=== PATIENT | female | born 1995 | race American Indian/Alaskan Native ===

== ENCOUNTER 2017-06-10 09:33 | Inpatient (IN) | payer MEDICAID ==
[2017-06-10] MEDS ORDERED: ePHEDrine SULFATE IV PRN ×2 (10:26→13:59)
[2017-06-10] MEDS ORDERED: XYLOCAINE 2% INFILTRATI ONE (10:26)
[2017-06-10] MEDS ORDERED: ZOFRAN IV PRN (10:26)
[2017-06-10] MEDS ORDERED: BRETHINE SUB-Q PRN (10:26)
[2017-06-10] MEDS ORDERED: SUBLIMAZE IV PRN (10:26)
[2017-06-10] MEDS ORDERED: MINERAL OIL PO PRN (10:26)
[2017-06-10] MEDS ORDERED: LACTATED RINGERS 1,000 ML IV SCH (11:00)
[2017-06-10] MEDS ORDERED: PITOCin/NS 20 UNIT/1000ML DRIP 20 UNITS/1,000 ML BAG IV SCH (11:00)
[2017-06-10 11:53] LABS: Hematocrit 29.8 % (30.3-42.9); Hemoglobin 9.6 gm/dl (10.1-14.3); Mean Corpuscular HGB Conc 32 % (30-34); Mean Corpuscular Volume 79 fl (79-97); Platelet Count 199 K/mm3 (140-440); Red Blood Count 3.78 M/mm3 (3.65-5.03); White Blood Count 11.2 K/mm3 (4.5-11.0)
[2017-06-10] MEDS: PITOCin/NS 30 UNIT/500ML 30 UNITS/500 ML BAG IV SCH ×2 (12:15→12:30)
[2017-06-10 12:23] LABS: Mean Corpuscular Hemoglobin 25 pg (28-32)
--- NOTE | 2017-06-10 13:17 | History and Physical Report ---
History of Present Illness Date of examination: 06/10/17 (arrived via EMS in early labor) Date of admission: 06/10/17 10:31 History of present illness: Pt arrived to Triage via EMS with records from OB provider that deliverers @ [facility]. 2015 girl 7pounds @ [facility] GBS+ Pt denies any complications with this Denies drugs, ETOH, no smoking. Past History - Obstetrical History Expected Date of Delivery: 06/11/17 Actual Gestation: 39 Week(s) 6 Day(s) : 2 Para: 1 Hx # Term Pregnancies: 1 Number of Living Children: 1 Medications and Allergies Allergies Allergy/AdvReac Type Severity Reaction Status Date / Time No Known Allergies Allergy Unverified 06/10/17 11:39 Active Meds: Active Medications Fentanyl (Sublimaze) 100 mcg IV Q2H PRN PRN Reason: Labor Pain Lactated Ringer's (Lactated Ringers) 1,000 mls @ 125 mls/hr IV DIRECT MENA Oxytocin/Sodium Chloride (Pitocin/Ns 20 Unit/1000ml Drip) 20 units in 1,000 mls @ 125 mls/hr IV DIRECT MENA Oxytocin/Sodium Chloride (Pitocin/Ns 30 Unit/500ml) 30 units in 500 mls @ 4 mls /hr IV Q30MIN MENA PRN Reason: Protocol Mineral Oil (Mineral Oil) 30 ml PO QHS PRN PRN Reason: Constipation Ondansetron HCl (Zofran) 4 mg IV Q8H PRN PRN Reason: Nausea And Vomiting - Vital Signs Vital signs: Vital Signs Pulse Pulse Ox 80 98 06/10/17 09:58 06/10/17 09:58 Temp Pulse Resp BP Pulse Ox 97.6 F 64 16 128/78 100 06/10/17 12:37 06/10/17 12:37 06/10/17 12:37 06/10/17 12:37 06/10/17 12:37 - Physical Exam Breasts: Positive: deferred Cardiovascular: Regular rate, Normal S1, Normal S2 Lungs: Positive: Normal air movement Abdomen: Positive: normal appearance, soft, normal bowel sounds. Negative: distention, tenderness Genitourinary (Female): Positive: normal external genitalia Vulva: both: normal Vagina: Positive: normal moisture. Negative: discharge Cervix: Negative: lesion, discharge Uterus: Positive: normal size, normal contour Adnexa: both: normal Anus/Rectum: Positive: normal perianal skin, heme negative. Negative: rectal mass, hemorrhoids Extremities: Positive: normal Deep Tendon Reflex Grade: Normal +2 - Obstetrical FHR: category 1 Uterine Contraction Monitor Mode: Internal Cervical Dilatation: 6 (ISE applied) Cervical Effacement Percentage: 100 (minimal fluid) station: -1 Uterine Contraction Pattern: Regular Uterine Tone Measurement Phase: Resting Uterine Contraction Intensity: Moderate Results Result Diagrams: 06/10/17 11:30 Abnormal lab results 06/10/17 Range/Units 11:30 WBC 11.2 H (4.5-11.0) K/mm3 Hgb 9.6 L (10.1-14.3) gm/dl Hct 29.8 L (30.3-42.9) % MCH 25 L (28-32) pg RDW 16.0 H (13.2-15.2) % All other labs normal. Assessment and Plan 22yo in labor With PNR in hand. Orders in EMR Anticipate delivery
[2017-06-10] MEDS ORDERED: ePHEDrine SULFATE ONE (13:51)
--- NOTE | 2017-06-10 13:58 | Anesthesia Consultation ---
Anesthesia Consult and Med Hx Date of service: 06/10/17 - Airway Anesthetic Teeth Evaluation: Good ROM Head & Neck: Adequate Mental/Hyoid Distance: Adequate Mallampati Class: Class II Intubation Access Assessment: Probably Good - Pre-Operative Health Status ASA Pre-Surgery Classification: ASA2 Proposed Anesthetic Plan: Epidural, Spinal - Pulmonary Hx Asthma: No COPD: No Hx Pneumonia: No - Cardiovascular System Hx Hypertension: No - Central Nervous System Hx Seizures: No Hx Psychiatric Problems: No - Endocrine Hx Renal Disease: No Hx End Stage Renal Disease: No Hx Hypothyroidism: No Hx Hyperthyroidism: No - Hematic Hx Anemia: No Hx Sickle Cell Disease: No - Other Systems Hx Alcohol Use: No
[2017-06-10] MEDS ORDERED: NARCAN 2 MG/2 ML IV PRN (14:14)
[2017-06-10] MEDS ORDERED: fentaNYL-BUPIV 2 MCG/ML-0.125% 200 MCG/100 ML BAG EPIDURAL SCH (15:00)
[2017-06-10] MEDS ORDERED: METHERGINE IM ONE ×2 (15:42→16:00)
[2017-06-10] MEDS ORDERED: CYTOTEC ONE (15:44)
[2017-06-10] MEDS ORDERED: MILK OF MAGNESIA PO PRN (15:54)
[2017-06-10] MEDS ORDERED: TYLENOL PO PRN (15:54)
[2017-06-10] MEDS ORDERED: LANSINOH TP PRN (15:54)
[2017-06-10] MEDS ORDERED: DULCOLAX PR PRN (15:54)
[2017-06-10] MEDS ORDERED: TUCKS PAD TP PRN (15:54)
[2017-06-10] MEDS ORDERED: NORCO 5/325 PO PRN (15:54)
[2017-06-10] MEDS ORDERED: PHENERGAN PO PRN (15:54)
[2017-06-10] MEDS ORDERED: BENADRYL PO PRN (15:54)
[2017-06-10] MEDS ORDERED: CYTOTEC PR ONE (16:00)
[2017-06-10] MEDS ORDERED: SODIUM CHLORIDE FLUSH SYRINGE 10 ML IV SCH (16:00)
--- NOTE | 2017-06-10 16:07 | Procedure Note ---
OB Delivery Note - Delivery Date of Delivery: 06/10/17 Contour Sander: AYESHA JIMENES Estimated blood loss: other (600cc) - Vaginal Delivery presentation: vertex Delivery position: OA Intrapartum events: hemorrhage Delivery induction: none Delivery augmentation: pitocin Delivery monitor: external uterine, internal FHT Route of delivery: Delivery placenta: spontaneous Delivery cord: 3 umbilical vessels Episiotomy: none Delivery laceration: none Anesthesia: epidural Delivery comments: live born female over intact perineum Baby placed on mom's abdomen skin to skin Placenta manually removed Appears intact Sent to pathology. PPH resolved with bimanual massage, pitocin IVFs, Methergine IM, Cytotec 800mcg SD placed. 8/9, EBL 600, Wgt 8-0 Mom and baby remain LDR stable. FF @ umb Lochia small No more clots removed. - Infant A at 1 minute: 8 at 5 minutes: 9 Gender: Female (wgt 8-0)
[2017-06-10 16:39] LABS: Urine Drugs of Abuse Note Disclamer
[2017-06-10] MEDS: MOTRIN PO SCH ×2 (16:45→21:52)
[2017-06-10] MEDS ORDERED: MOTRIN PO SCH (17:00)
[2017-06-10 21:13] LABS: Hematocrit 28.3 % (30.3-42.9); Hemoglobin 9.2 gm/dl (10.1-14.3)
[2017-06-10] MEDS: PERCOCET 5/325 PO PRN (21:51)
[2017-06-10] MEDS: METHERGINE PO SCH (21:52)
[2017-06-10] MEDS: COLACE PO SCH (21:52)
[2017-06-11] MEDS: PERCOCET 5/325 PO PRN (04:25)
[2017-06-11 05:35] LABS: Hematocrit 30.5 % (30.3-42.9)
[2017-06-11] MEDS ORDERED: BOOSTRIX IM ONE (06:00)
[2017-06-11] MEDS: MOTRIN PO SCH ×2 (06:05→13:16)
[2017-06-11] MEDS: METHERGINE PO SCH ×2 (06:05→13:16)
[2017-06-11] MEDS ORDERED: DEPO-PROVERA (CONTRACEPTION) IM ONE (07:57)
--- NOTE | 2017-06-11 07:57 | Progress Note ---
Assessment and Plan patient doing well, no complaints. desires d/c home today, states GBS was negative (need to obtain records). Padmini weiss, H&H 09/20.5, VSSAF. Patient desires depo prior to d/c and will f/u in our office for her appointment. - Patient Problems (1) hemorrhage, delivered Current Visit: Yes Status: Acute (2) Spontaneous vaginal delivery Current Visit: Yes Status: Acute Subjective - Subjective Date of service: 06/11/17 Principal diagnosis: day #1 s/p Patient reports: appetite normal, voiding normally, pain well controlled, ambulating normally, no dizzy ambulation, no nauseated Labadie: doing well, nursing well Objective - Vital Signs Latest vital signs: Vital Signs Temp Pulse Pulse Resp BP BP Pulse Ox 06/11/17 00:00 98.2 F 59 L 20 113/65 06/10/17 20:00 98.4 F 78 20 134/66 06/10/17 17:35 98.2 F 62 20 148/80 06/10/17 16:43 71 144/73 06/10/17 16:28 87 154/118 06/10/17 16:25 92 H 74 L 06/10/17 16:20 80 100 06/10/17 16:17 98.3 F 88 18 135/99 100 06/10/17 16:15 92 H 100 06/10/17 16:12 81 135/99 06/10/17 16:09 83 148/85 06/10/17 16:07 140/86 06/10/17 16:05 84 131/75 06/10/17 15:59 81 137/73 06/10/17 15:50 85 126/60 06/10/17 15:48 88 139/65 06/10/17 15:46 85 131/65 06/10/17 15:43 83 142/63 06/10/17 15:42 79 142/62 06/10/17 15:40 98.3 F 76 76 18 121/60 121/60 100 06/10/17 15:38 90 120/60 06/10/17 15:36 80 127/64 06/10/17 15:33 87 130/62 06/10/17 15:32 90 139/63 06/10/17 15:26 90 159/84 06/10/17 15:22 103 H 137/74 06/10/17 15:20 93 H 173/84 06/10/17 15:17 86 154/85 06/10/17 15:15 76 148/83 06/10/17 15:13 83 145/90 06/10/17 15:11 90 143/78 06/10/17 15:09 73 144/80 06/10/17 15:08 76 141/76 06/10/17 15:06 69 123/78 06/10/17 15:04 77 116/72 06/10/17 15:01 77 141/82 06/10/17 15:00 82 136/75 06/10/17 14:57 67 139/83 06/10/17 14:55 72 133/83 06/10/17 14:53 86 136/82 06/10/17 14:51 67 136/79 06/10/17 14:49 67 132/74 06/10/17 14:47 72 134/80 06/10/17 14:45 70 134/77 06/10/17 14:43 77 134/76 06/10/17 14:42 75 128/69 06/10/17 14:39 68 126/72 06/10/17 14:37 69 127/76 06/10/17 14:35 70 133/78 06/10/17 14:33 84 127/74 06/10/17 14:31 78 134/75 06/10/17 14:29 73 129/75 06/10/17 14:28 81 132/69 06/10/17 14:26 77 73 L 06/10/17 14:25 84 137/78 06/10/17 14:24 68 100 06/10/17 14:23 81 131/71 06/10/17 14:21 70 128/70 06/10/17 14:19 72 130/70 98 06/10/17 14:18 65 128/61 06/10/17 14:16 74 126/76 06/10/17 14:14 86 98 06/10/17 14:12 82 144/69 06/10/17 14:09 82 135/82 06/10/17 14:07 78 132/82 100 06/10/17 14:05 88 131/77 06/10/17 14:04 98 H 88 06/10/17 14:02 82 97 06/10/17 12:37 97.6 F 64 16 128/78 100 06/10/17 12:36 68 97 06/10/17 12:32 70 92 06/10/17 12:31 72 98 06/10/17 12:26 71 97 06/10/17 12:21 76 99 06/10/17 12:16 75 98 06/10/17 12:11 87 97 06/10/17 10:19 77 94 06/10/17 10:18 90 94 06/10/17 10:14 73 98 06/10/17 10:10 79 68 L 06/10/17 10:09 71 97 06/10/17 10:04 79 97 06/10/17 10:02 35 L 0 L 06/10/17 09:59 98.2 F 84 82 18 104/58 104/58 98 06/10/17 09:58 80 98 Intake and Output 06/10/17 06/11/17 06/11/17 22:59 06:59 14:59 Intake Total 865 290 Output Total 300 900 Balance 565 -610 Intake: IV 625 50 PITOCin/NS 20 UNIT/1000ML 625 50 DRIP 20 units In 1,000 ml @ 125 mls/hr IV DIRECT MENA Rx#:[id number] Oral 240 240 Output: Urine 300 900 Indwelling Catheter 300 Void 900 Other: Total, Intake Amount 240 240 Total, Output Amount 300 900 # Voids Void 300 600 Estimated Blood Loss 600 - Exam Breasts: Present: normal, Cardiovascular: Present: Regular rate Lungs: Present: Clear to auscultation, Normal air movement Abdomen: Present: normal appearance, soft Vulva: both: normal Uterus: Present: normal, firm, fundal height at umbilicus Extremities: Present: normal Deep Tendon Reflex Grade: Normal +2 - Labs Labs: Abnormal lab results 06/10/17 06/10/17 06/11/17 Range/Units 11:30 20:58 04:44 WBC 11.2 H (4.5-11.0) K/mm3 Hgb 9.6 L 9.2 L 10.0 L (10.1-14.3) gm/dl Hct 29.8 L 28.3 L (30.3-42.9) % MCH 25 L (28-32) pg RDW 16.0 H (13.2-15.2) %
--- NOTE | 2017-06-11 08:01 | Discharge Summary ---
Providers - Providers Date of Admission: 06/10/17 10:31 Date of discharge: 06/11/17 (desires d/c home) Attending physician: CAITLIN FELICIANO Primary care physician: CAITLIN FELICIANO Hospitalization Reason for admission: active labor Delivery: Episiotomy: none Laceration: none Other procedures: none complications: none Discharge diagnosis: IUP at term delivered [place] baby: female Hospital course: uncomplicated vaginal Condition at discharge: Good Disposition: DC-01 TO HOME OR SELFCARE - Discharge Diagnoses (1) hemorrhage, delivered Status: Acute (2) Spontaneous vaginal delivery Status: Acute Plan - Discharge Medications Prescriptions: Ibuprofen [Motrin 800 MG tab] 800 mg PO Q8HR PRN #30 tablet PRN Reason: Pain - Provider Discharge Summary Activity: routine, no sex for 6 weeks, no heavy lifting 4 weeks, no strenuous exercise Diet: routine Instructions: routine Additional instructions: [] Smoking cessation referral if applicable(refer to patient education folder for contact #) [] Refer to [facility] Booklet Call your doctor immediately for: * Fever > 100.5 * Heavy vaginal bleeding ( >1 pad per hour) * Severe persistent headache * Shortness of breath * Reddened, hot, painful area to leg or breast * Drainage or odor from incision. * Keep incision clean and dry at all times and follow doctor's instructions regarding bathing/showering - Follow up plan Follow up: CAITLIN FELICIANO MD [Primary Care Provider] - 07/15/17 (Congratulations! Please call [phone] to schedule your appointment in 4 weeks. Call for any questions or concerns. )
[2017-06-11] MEDS ORDERED: PRENATAL VITAMIN PO SCH (10:00)
[2017-06-11] MEDS: COLACE PO SCH (10:27)
--- NOTE | 2017-06-11 10:58 | Progress Note ---
Subjective Date of service: 06/10/17 Principal diagnosis: day #1 s/p Interval history: Patient states she has no residual numbness, denies pain or nausea, ambulating well, voiding. No anesthesia complications. Epidural has been removed. Objective - Constitutional Vitals: Vital Signs - 12hr 06/11/17 06/11/17 00:00 08:15 Temperature 98.2 F 98.5 F Pulse Rate [ 59 L 74 Right From Monitor] Respiratory 20 18 Rate Blood Pressure 113/65 135/67 [Left Arm] - Labs CBC & Chem 7: 06/11/17 04:44 Labs: Abnormal lab results 06/10/17 06/10/17 06/11/17 Range/Units 11:30 20:58 04:44 WBC 11.2 H (4.5-11.0) K/mm3 Hgb 9.6 L 9.2 L 10.0 L (10.1-14.3) gm/dl Hct 29.8 L 28.3 L (30.3-42.9) % MCH 25 L (28-32) pg RDW 16.0 H (13.2-15.2) %
[2017-06-11] MEDS ORDERED: M-M-R II VACCINE SUB-Q ONE (15:54)
[2017-06-11 18:18] VITALS: BP 138/80
== END 2017-06-11 18:45 | disposition home or self-care (01) | DRG 774 ==
LOC: TRG 09:33 → LD 10:31 → OB 17:44
PROVIDERS: ADMIT Obstetrics & Gynecology; ATTEND Obstetrics & Gynecology
PROC: 10E0XZZ Delivery of Products of Conception, External Approach (ICD-10-PCS; principal; 2017-06-10)
PROC: 00HU33Z Insertion of Infusion Device into Spinal Canal, Percutaneous Approach (ICD-10-PCS; 2017-06-10)
PROC: 3E0R3CZ (ICD-10-PCS; 2017-06-10)
PROC: 3E0234Z Introduction of Serum, Toxoid and Vaccine into Muscle, Percutaneous Approach (ICD-10-PCS; 2017-06-10)
DX: O72.1 Other immediate postpartum hemorrhage (principal); Z3A.39 39 weeks gestation of pregnancy; Z37.0 Single live birth
CPT/HCPCS: 36415; 80307; 85014; 85018; 85027; 86592; 86850; 86900; 86901; 88307; 99211; G0463; J1050; J2210; J2590; J3010; J7120